=== PATIENT | female | born 1970 | race Caucasian/White ===

== ENCOUNTER 2016-12-16 08:50 | Day surgery (SDC) | payer OTHER ==
[~2016-12-16] VITALS: Ht 152.4 cm; Wt 69.1 kg
[~2016-12-16 08:50] MED LIST: IBUP-1546 PO; SODIUM CHLORIDE 0.9% 1,000 ML IV ONE
[2016-12-16] MEDS ORDERED: SODIUM CHLORIDE 0.9% 1,000 ML IV ONE ×2 (09:00→09:53)
[2016-12-16] MEDS ORDERED: PROPOFOL 1% 20 ML VIAL IVP ONE (12:00)
[2016-12-16] MEDS ORDERED: LIDOCAINE HCL/PF 2% 5 ML VIAL INJ ONE (12:00)
[2016-12-16] MEDS ORDERED: METOCLOPRAMIDE HCL 5 MG/ML 2 ML VIAL IVP ONE (12:00)
[2016-12-16] MEDS ORDERED: ONDANSETRON HCL 4 MG/2 ML VIAL IVP ONE (12:00)
== END 2016-12-16 12:35 | disposition home or self-care (01) ==
LOC: SURGERY 08:50
PROVIDERS: ATTEND Specialist
DX: K64.1 Second degree hemorrhoids (principal); K21.9 Gastro-esophageal reflux disease without esophagitis; M19.90 Unspecified osteoarthritis, unspecified site; I44.7 Left bundle-branch block, unspecified; E66.9 Obesity, unspecified; Z91.018 Allergy to other foods; Z90.721 Acquired absence of ovaries, unilateral; Z90.49 Acquired absence of other specified parts of digestive tract
CPT/HCPCS: 45398; C1716; J2405; J2704; J2765; J3490; J7030